=== PATIENT | male | born 1960 | race Caucasian/White ===

== ENCOUNTER → 2024-09-18 | Outpatient (CLI) | payer OTHER | LOC: M RAD 14:02 | PROVIDERS: ATTEND Physician Assistant | DX: M50.021 Cervical disc disorder at C4-C5 level with myelopathy (principal); M47.812 Spondylosis without myelopathy or radiculopathy, cervical region ==

== ENCOUNTER → 2024-09-27 | Outpatient (CLI) | payer OTHER | LOC: M PLAIMG 13:46 | PROVIDERS: ATTEND Physician Assistant | DX: M50.021 Cervical disc disorder at C4-C5 level with myelopathy (principal) ==